=== PATIENT | female | born 1955 | race Caucasian/White ===

== ENCOUNTER 2019-02-13 06:50 | Day surgery (SDC) | payer BC ==
[2019-02-12 10:51] LABS: CHLORIDE,CL 105 mmol/L (98-107); SODIUM,NA 142 mmol/L (136-145)
[~2019-02-13 06:50] MED LIST: Lactated Ringers 1,000 ML IV SCH
[2019-02-13] MEDS ORDERED: Fluorescein 5 ML Vial ONE (07:31)
[2019-02-13] MEDS ORDERED: Dexamethasone 4 MG/ML 5 ML MDV ONE ×2 (07:42→08:49)
[2019-02-13] MEDS ORDERED: Propofol 200 MG/20 ML SDV ONE (07:42)
[2019-02-13] MEDS ORDERED: Lidocaine 2% 5 ML SDV ONE (07:42)
[2019-02-13] MEDS ORDERED: Ketorolac 30 MG/ML SDV ONE ×2 (07:42→10:13)
[2019-02-13] MEDS ORDERED: Ondansetron 4 MG/2 ML SDV ONE ×2 (07:42→08:49)
[2019-02-13] MEDS ORDERED: Midazolam 1 MG/ML 2 ML SDV ONE (07:43)
[2019-02-13] MEDS ORDERED: fentaNYL 250 MCG/5 ML SDV ONE (07:43)
--- NOTE | 2019-02-13 07:43 | PCM.PREANE ---
Preanesthetic Assessment - Anesthesia/Transfusion/Family Hx Anesthesia History: Prior Anesthesia Without Reaction Family History of Anesthesia Reaction: No Transfusion History: No Prior Transfusion(s) - Review of Systems General: No Symptoms Pulmonary: No Symptoms Cardiovascular: No Symptoms Gastrointestinal: No Symptoms Neurological: No Symptoms Other: Reports: None - Physical Assessment NPO Status Date: 02/12/19 Height: 5 ft 0.5 in Weight: 60.328 kg ASA Class: 2 Airway Class: Mallampati = 2 Dentition: Reports: Normal Dentition ROM/Head Extension: Full Lungs: Clear to Auscultation, Normal Respiratory Effort Cardiovascular: Regular Rate, Regular Rhythm - Lab Values: Laboratory Last Values WBC 5.60 K/uL (4.0-11.0) 02/12/19 10:04 RBC 4.65 M/uL (4.30-5.90) 02/12/19 10:04 Hgb 15.2 g/dL (12.0-16.0) 02/12/19 10:04 Hct 42.5 % (36.0-46.0) 02/12/19 10:04 MCV 91.4 fL (80.0-98.0) 02/12/19 10:04 MCH 32.7 pg (27.0-32.0) H 02/12/19 10:04 MCHC 35.8 g/dL (31.0-37.0) 02/12/19 10:04 RDW Std Deviation 45.6 fl (28.0-62.0) 02/12/19 10:04 RDW Coeff of Urszula 14 % (11.0-15.0) 02/12/19 10:04 Plt Count 266 K/uL (150-400) 02/12/19 10:04 MPV 9.80 fL (7.40-12.00) 02/12/19 10:04 Nucleated RBC % 0.0 /100WBC 02/12/19 10:04 Nucleated RBCs # 0 K/uL 02/12/19 10:04 Sodium 142 mmol/L (136-145) 02/12/19 10:04 Potassium 3.6 mmol/L (3.5-5.1) 02/12/19 10:04 Chloride 105 mmol/L (98-107) 02/12/19 10:04 Carbon Dioxide 29.4 mmol/L (21.0-32.0) 02/12/19 10:04 BUN 15 mg/dL (7.0-18.0) 02/12/19 10:04 Creatinine 0.8 mg/dL (0.6-1.0) 02/12/19 10:04 Est Cr Clr Drug Dosing 53.70 mL/min 02/12/19 10:04 Estimated GFR (MDRD) > 60.0 ml/min 02/12/19 10:04 Glucose 95 mg/dL (74-106) 02/12/19 10:04 Calcium 9.2 mg/dL (8.5-10.1) 02/12/19 10:04 HCG, Qual NEGATIVE (NEG) 02/12/19 10:04 Blood Type O POSITIVE 02/12/19 10:04 Antibody Screen NEGATIVE 02/12/19 10:04 - Allergies Allergies/Adverse Reactions: Allergies Allergy/AdvReac Type Severity Reaction Status Date / Time nickel Allergy Rash Verified 02/07/19 13:32 - Blood Blood Available: No - Anesthesia Plan Pre-Op Medication Ordered: None - Acknowledgements Anesthesia Type Planned: General Anesthesia Pt an Appropriate Candidate for the Planned Anesthesia: Yes Alternatives and Risks of Anesthesia Discussed w Pt/Guardian: Yes Pt/Guardian Understands and Agrees with Anesthesia Plan: Yes PreAnesthesia Questionnaire HEENT History: Reports: Other (See Below) Other HEENT History: wears glasses Cardiovascular History: Reports: None Respiratory History: Reports: None Gastrointestinal History: Reports: None Genitourinary History: Reports: None BILLET HEATER History: Reports: Musculoskeletal History: Reports: None Neurological History: Reports: Concussion Psychiatric History: Reports: None Endocrine/Metabolic History: Reports: None Hematologic History: Reports: None Immunologic History: Reports: None Oncologic (Cancer) History: Reports: None Dermatologic History: Reports: None - Past Surgical History Head Surgeries/Procedures: Reports: None HEENT Surgical History: Reports: Adenoidectomy, Oral Surgery, Tonsillectomy Cardiovascular Surgical History: Reports: None Respiratory Surgical History: Reports: None GI Surgical History: Reports: None Female Surgical History: Reports: None Endocrine Surgical History: Reports: None Neurological Surgical History: Reports: None Musculoskeletal Surgical History: Reports: None Oncologic Surgical History: Reports: None Dermatological Surgical History: Reports: None - SUBSTANCE USE Smoking Status *Q: Never Smoker Recreational Drug Use History: No - HOME MEDS Home Medications: Home Meds . [No Known Home Meds] 08/24/15 [History] - CURRENT (IN HOUSE) MEDS Current Meds: Current Medications Lactated Ringer's (Ringers, Lactated) 1,000 mls @ 125 mls/hr IV ASDIRECTED [facility] Discontinued Medications Fluorescein Sodium (Ak-Fluor) Confirm Administered Dose 5 ml .ROUTE .STK-MED ONE Stop: 02/13/19 07:32
[2019-02-13] MEDS ORDERED: Succinylcholine 200 MG/10 ML MDV ONE (08:46)
[2019-02-13] MEDS ORDERED: Neostigmine Methylsulfate 1 MG/ML 5 ML Syringe ONE (08:48)
[2019-02-13] MEDS ORDERED: Glycopyrrolate 0.2 MG/ML SDV ONE (08:48)
[2019-02-13] MEDS ORDERED: Mineral Oil/Petrolatum Ophth Oint 3.5 GM Tube ONE (09:07)
[2019-02-13] MEDS ORDERED: ceFAZolin 1 GM Vial ONE (09:10)
[2019-02-13] MEDS ORDERED: Furosemide 40 MG/4 ML VIAL ONE (09:54)
[2019-02-13] MEDS ORDERED: fentaNYL 100 MCG/2 ML SDV IVPUSH PRN (11:01)
[2019-02-13] MEDS ORDERED: Promethazine 25 MG/ML SDV IM PRN (11:15)
[2019-02-13] MEDS ORDERED: Morphine 10 MG/ML Syringe IVPUSH PRN (11:15)
[2019-02-13] MEDS ORDERED: Ketorolac 30 MG/ML SDV IVPUSH ONE (11:15)
[2019-02-13] MEDS ORDERED: Ondansetron 4 MG/2 ML SDV IVPUSH PRN (11:15)
--- NOTE | 2019-02-13 11:15 | PCM.OPNOTE ---
- General Post-Op/Procedure Note Date of Surgery/Procedure: 02/13/19 Operative Procedure(s): total vaginal hysterectomy, bilateral salpingoophorectomy, cystoscopy, anterior and posterior colporrhaphy, perineorrhaphy, vaginal vault suspension to uterosacral ligaments Findings: complete procidentia with enterocele, 4th degree cystocele, 2nd degree rectocele , gaping introitus Pre Op Diagnosis: complete uterovaginal prolapse. Post-Op Diagnosis: Same Anesthesia Technique: General ET Tube Primary Surgeon: Teresa Alexis Secondary Surgeon: Regine Marinelli Anesthesia Provider: Mihai Guevara Long Distance Billing Operator: Donna Sy Pathology: uterus, tubes, ovaries, vaginal mucosa Fluid Replacement, Intraop: 1,300 Output, Urine Amount: 750 EBL in mLs: 30 Complications: None known Condition: Good
--- NOTE | 2019-02-13 12:02 | PCM.POSTAN ---
POST ANESTHESIA ASSESSMENT - MENTAL STATUS Mental Status: Alert, Oriented - VITAL SIGNS Pulse Rate: 72 SaO2: 94 (RA) Resp Rate: 12 Blood Pressure: 124/75 - RESPIRATORY Respiratory Status: Respiratory Rate WNL, Airway Patent, O2 Saturation Stable - CARDIOVASCULAR CV Status: Pulse Rate WNL, Blood Pressure Stable - GASTROINTESTINAL GI Status: No Symptoms - POST OP HYDRATION Hydration Status: Adequate & Stable
[2019-02-13] MEDS: Acetaminophen/oxyCODONE 325-5 MG Tab PO PRN ×3 (13:57→20:59)
[2019-02-13] MEDS: Ketorolac 30 MG/ML SDV IVPUSH SCH ×3 (14:52→21:05)
--- NOTE | 2019-02-13 17:56 | PCM.SN ---
- Free Text/Narrative Note: POD 0 after TVH, BSO anterior and posterior colporrhaphy and vaginal vault suspension. Reviewed operative findings, pain well controlled, tolerating diet , will remove catheter and vaginal packing in am.
--- NOTE | 2019-02-13 18:08 | OR ---
SURGEON: Teresa Alexis M.D. DATE OF PROCEDURE: 02/13/2019 PREOPERATIVE DIAGNOSIS: Complete procidentia. POSTOPERATIVE DIAGNOSIS: Complete procidentia. PROCEDURE PERFORMED: Total vaginal hysterectomy, bilateral salpingo-oophorectomy, anterior and posterior colporrhaphy, perineorrhaphy, vaginal vault suspension to the uterosacral ligament, cystoscopy. PARTS PRODUCT ANALYST: Regine Marinelli M.D. ANESTHESIA: General endotracheal. FLUIDS: 1300 mL of crystalloid. ESTIMATED BLOOD LOSS: 30 mL. URINE OUTPUT: 500 mL. FINDINGS: Complete uterovaginal prolapse with the cervix and uterus external to the perineum, fourth-degree cystocele, fourth-degree enterocele, second-degree rectocele, gaping introitus. BRIEF HISTORY: This is a 63-year-old female. She presents with complaint of pelvic pressure and difficulty urinating. She was noted to have complete uterovaginal prolapse. She did receive a pessary, which she retained from the time it was placed until the day of surgery, and she did have relief of her symptoms with the pessary. However, she experienced severe pain with placement of the pessary and declines further use of the pessary. She desires definitive management with total vaginal hysterectomy, anterior and posterior colporrhaphy, vaginal vault suspension, and perineorrhaphy. Additionally, if it does not add significantly to the procedure, she would like to have both tubes and ovaries removed for risk reduction of ovarian cancer. She understands risks including risk of bleeding; infection; injury to bowel, bladder, blood vessels or any other organs; risk of thromboembolic event; risk of recurrence of approximately 30%; risk of dyspareunia. Additionally, she understands that I am a general air compressor engineer, and although I have performed this procedure as a primary surgeon for 17 years, I am not a urogynecologist, and I did offer her referral to a urogynecologist. However, she declines and prefers to have the procedure performed locally. DESCRIPTION OF PROCEDURE: With the patient in dorsal lithotomy position, under adequate general endotracheal anesthesia, the perineum and vagina were prepped with Betadine, draped in usual fashion for vaginal surgery. The pessary had been removed and Warner catheter had been placed. SCDs were in place. She received 2 g of Ancef IV. The upper abdomen was prepped with chlorhexidine. The perineum was prepped in the usual fashion for vaginal surgery. After appropriate time-out was held, bimanual examination revealed the cervix to be protruding well beyond the level of the introitus. The cervix was grasped with a Chana tenaculum and circumscribed using electrocautery. The posterior cul-de-sac was entered with sharp dissection and the Namita-Auvard speculum was placed posteriorly. The anterior cul-de-sac was then dissected using Metzenbaum scissors, and I actually placed a finger from the posterior cul-de-sac to the anterior cul-de-sac to identify the appropriate level of entry into the anterior cul-de-sac, which was performed sharply, and the right-angle retractor was placed anteriorly. The uterosacral ligaments were cross clamped, cut, and ligated using a Clarita ligature of 2-0 Polysorb. Two additional pedicles were taken on the right and the left using a Edenilson clamp and cutting and Clarita ligature of 2-0 Polysorb. The retained sutures of the utero-ovarian ligament were then utilized as the tubes and ovaries were easily brought into field. The infundibulopelvic ligament was then clamped and ligated. The tubes and ovaries were removed. The pedicle was ligated using a free tie followed by three point suture of 3-0 Polysorb and retained for inspection. On the left, there was some additional bleeding as the tip of the pedicle had retracted from the clamp. This was easily identified, clamped, and ligated using a Clarita ligature of 2-0 Polysorb. These pedicles were carefully inspected and were hemostatic on both sides and therefore were released. The anterior vaginal cuff was then grasped and hydrodissection was performed in the midline and a midline incision was made with Metzenbaum scissors. The muscularis layer was dissected and reapproximated in the midline using multiple interrupted mattress sutures of 2-0 Polysorb. This being completed, the retained uterosacral ligaments were utilized placing Kathrin clamps just medial on the right and the left to identify the upper portion of the broken uterosacral ligament. Three sutures of 2-0 Ticron were placed on the right and the left proceeding lateral to medial. A single tie was placed in each suture. After each of the sutures had been placed for a total of three on each side, these seemed to provide good support. The Warner catheter was then desufflated and the bowel packing that had been placed was removed. Cystoscopy was then performed using sterile water as a distending medium. IV fluorescein and Lasix had been given, and with pressure on each side, there was good flow from the ureter of bright green urine from the ipsilateral side. There was also no evidence of any trauma to the bladder mucosa. On the cystoscopy being completed, the Warner catheter was replaced. The retained ligatures that were placed in the upper uterosacral ligament, one arm was then placed through the muscularis layer at the vaginal apex of the repaired anterior cuff. Inspection revealed that there was a large enterocele. However, I felt that I could easily reduce this by going ahead and placing the posterior suture which was placed through the peritoneum and muscularis layer of the vagina at the posterior cuff. With this being completed, the cuff was suspended by tying each suture with the highest suture being placed in the midline of the vaginal cuff. The remainder of the vaginal cuff and anterior colporrhaphy after the vaginal mucosa had been trimmed was closed with a running lock suture of 2-0 Polysorb. A triangular incision was then made in the perineum. Hydrodissection was performed posteriorly. The muscularis layer was dissected from the overlying vaginal mucosa along the midline of the posterior vagina. This was reapproximated using multiple interrupted mattress sutures of 2-0 Polysorb. The vaginal mucosa was then closed with a running lock suture posteriorly of 2-0 Polysorb. This was then passed down to the perineum where the apices of the triangle were reapproximated in the midline providing excellent support of the perineum. A running deep suture was placed using the 3-0 Polysorb followed by subcuticular suture for the skin. This being completed, there was noted to be excellent support of the vaginal cuff. The vaginal cuff was completely closed. The introitus had excellent support. Warner catheter was in place and the vaginal packing was then placed using a water-based lubricant on the packing. Final sponge, needle, and instrument counts were reported as correct. There were no complications. The patient was transferred to recovery in good condition. SHELBY / MAYKEL /[id number]
[2019-02-14] MEDS: Acetaminophen/oxyCODONE 325-5 MG Tab PO PRN ×4 (01:54→16:01)
[2019-02-14] MEDS: Ketorolac 30 MG/ML SDV IVPUSH SCH ×3 (03:38→15:20)
--- NOTE | 2019-02-14 08:53 | PCM.SURGPN ---
- General Info Date of Service: 02/14/19 Date of Surgery/Procedure: 02/13/19 POD#: 1 Post-Op Diagnosis: complete uterovaginal prolapse. Functional Status: Reports: Pain Controlled, Tolerating Diet, Ambulating, Urinating - Review of Systems General: Reports: No Symptoms HEENT: Reports: No Symptoms Pulmonary: Reports: No Symptoms Cardiovascular: Reports: No Symptoms Gastrointestinal: Reports: No Symptoms Genitourinary: Reports: No Symptoms Musculoskeletal: Reports: No Symptoms Skin: Reports: No Symptoms Neurological: Reports: No Symptoms Psychiatric: Reports: No Symptoms - Patient Data Vitals - Most Recent: Last Vital Signs Temp 36.6 C 02/14/19 08:10 Pulse 70 02/14/19 08:10 Resp 19 02/14/19 08:10 BP 141/80 H 02/14/19 08:10 Pulse Ox 93 L 02/14/19 08:10 Weight - Most Recent: 60.328 kg I&O - Last 24 Hours: Intake & Output 02/13/19 02/14/19 02/14/19 22:59 06:59 14:59 Output Total 850 Balance -850 Lab Results Last 24 Hrs: Laboratory Results - last 24 hr 02/14/19 02/14/19 Range/Units 05:50 05:50 WBC 13.27 H (4.0-11.0) K/uL RBC 4.11 L (4.30-5.90) M/uL Hgb 13.2 (12.0-16.0) g/dL Hct 37.6 (36.0-46.0) % MCV 91.5 (80.0-98.0) fL MCH 32.1 H (27.0-32.0) pg MCHC 35.1 (31.0-37.0) g/dL RDW Std Deviation 44.9 (28.0-62.0) fl RDW Coeff of Urszula 14 (11.0-15.0) % Plt Count 264 (150-400) K/uL MPV 10.20 (7.40-12.00) fL Neut % (Auto) 75.9 (48.0-80.0) % Lymph % (Auto) 11.3 L (16.0-40.0) % [place] % (Auto) 12.4 (0.0-15.0) % Eos % (Auto) 0.2 (0.0-7.0) % Baso % (Auto) 0.2 (0.0-1.5) % Neut # (Auto) 10.1 H (1.4-5.7) K/uL Lymph # (Auto) 1.5 (0.6-2.4) K/uL [place] # (Auto) 1.6 H (0.0-0.8) K/uL Eos # (Auto) 0.0 (0.0-0.7) K/uL Baso # (Auto) 0.0 (0.0-0.1) K/uL Nucleated RBC % 0.0 /100WBC Nucleated RBCs # 0 K/uL Sodium 140 (136-145) mmol/L Potassium 3.7 (3.5-5.1) mmol/L Chloride 104 (98-107) mmol/L Carbon Dioxide 30.3 (21.0-32.0) mmol/L BUN 15 (7.0-18.0) mg/dL Creatinine 1.0 (0.6-1.0) mg/dL Est Cr Clr Drug Dosing 42.96 mL/min Estimated GFR (MDRD) 56.2 ml/min Glucose 96 (74-106) mg/dL Calcium 8.9 (8.5-10.1) mg/dL Med Orders - Current: Current Medications Lactated Ringer's (Ringers, Lactated) 1,000 mls @ 125 mls/hr IV ASDIRECTED [facility] Last Admin: 02/13/19 07:30 Dose: 125 mls/hr Ketorolac Tromethamine (Toradol) 15 mg IVPUSH Q6H [facility] Stop: 02/18/19 15:01 Last Admin: 02/14/19 08:16 Dose: Not Given Morphine Sulfate (Morphine) 4 mg IVPUSH Q2H PRN PRN Reason: Pain (severe 7-10) Last Admin: 02/13/19 12:47 Dose: 4 mg Ondansetron HCl (Zofran) 4 mg IVPUSH Q6H PRN PRN Reason: Nausea/Vomiting Oxycodone/Acetaminophen (Percocet 325-5 Mg) 1 tab PO Q4H PRN PRN Reason: Pain (moderate 4-6) Last Admin: 02/14/19 06:08 Dose: 1 tab Oxycodone/Acetaminophen (Percocet 325-5 Mg) 2 tab PO Q4H PRN PRN Reason: Pain (moderate 4-6) Promethazine HCl (Phenergan) 25 mg IM Q6H PRN PRN Reason: Nausea/Vomiting Discontinued Medications Cefazolin Sodium (Ancef) Confirm Administered Dose 2 gm .ROUTE .STK-MED ONE Stop: 02/13/19 09:11 Dexamethasone (Dexamethasone) Confirm Administered Dose 20 mg .ROUTE .STK-MED ONE Stop: 02/13/19 07:43 Dexamethasone (Dexamethasone) Confirm Administered Dose 20 mg .ROUTE .STK-MED ONE Stop: 02/13/19 08:50 Fentanyl (Sublimaze) Confirm Administered Dose 250 mcg .ROUTE .STK-MED ONE Stop: 02/13/19 07:44 Fentanyl (Sublimaze) 50 mcg IVPUSH Q5M PRN PRN Reason: Pain (severe 7-10) Stop: 02/13/19 13:00 Fluorescein Sodium (Ak-Fluor) Confirm Administered Dose 5 ml .ROUTE .STK-MED ONE Stop: 02/13/19 07:32 Furosemide (Lasix) Confirm Administered Dose 40 mg .ROUTE .STK-MED ONE Stop: 02/13/19 09:55 Glycopyrrolate (Robinul) Confirm Administered Dose 0.4 mg .ROUTE .STK-MED ONE Stop: 02/13/19 08:49 Lidocaine HCl (Xylocaine-Mpf 1%) Confirm Administered Dose 5 mls @ as directed .ROUTE .STK-MED ONE Stop: 02/13/19 08:47 Acetaminophen (Ofirmev) Confirm Administered Dose 100 mls @ as directed IV .STK- MED ONE Stop: 02/13/19 10:06 Ketorolac Tromethamine (Toradol) Confirm Administered Dose 30 mg .ROUTE .STK- MED ONE Stop: 02/13/19 07:43 Ketorolac Tromethamine (Toradol) Confirm Administered Dose 30 mg .ROUTE .STK- MED ONE Stop: 02/13/19 10:14 Ketorolac Tromethamine (Toradol) 15 mg IVPUSH ONETIME ONE Stop: 02/13/19 11:16 Last Admin: 02/13/19 14:01 Dose: Not Given Lidocaine (Xylocaine-Mpf 2%) Confirm Administered Dose 5 ml .ROUTE .STK-MED ONE Stop: 02/13/19 07:43 Midazolam HCl (Versed 1 Mg/Ml) Confirm Administered Dose 4 mg .ROUTE .STK-MED ONE Stop: 02/13/19 07:44 Mineral Oil/White Petrolatum (Lacri-Lube S.O.P Oint) Confirm Administered Dose 3.5 gm .ROUTE .STK-MED ONE Stop: 02/13/19 09:08 Neostigmine Methylsulfate (Neostigmine) Confirm Administered Dose 5 mg .ROUTE .STK-MED ONE Stop: 02/13/19 08:49 Ondansetron HCl (Zofran) Confirm Administered Dose 8 mg .ROUTE .STK-MED ONE Stop: 02/13/19 07:43 Ondansetron HCl (Zofran) Confirm Administered Dose 4 mg .ROUTE .STK-MED ONE Stop: 02/13/19 08:50 Propofol (Diprivan 20 Ml) Confirm Administered Dose 200 mg .ROUTE .STK-MED ONE Stop: 02/13/19 07:43 Succinylcholine Chloride (Quelicin) Confirm Administered Dose 200 mg .ROUTE .STK -MED ONE Stop: 02/13/19 08:47 - Exam Wound/Incisions: Other (vaginal packing removed, minimal brown discharge. ) General: Alert, Oriented Neck: Supple Lungs: Normal Respiratory Effort Cardiovascular: Regular Rate, Regular Rhythm GI/Abdominal Exam: Soft, Non-Tender Extremities: Normal Inspection, Normal Range of Motion, Non-Tender, No Pedal Edema, Normal Capillary Refill Neurological: No New Focal Deficit Psy/Mental Status: Alert, Normal Affect, Normal Mood - Problem List & Annotations (1) Complete uterovaginal prolapse SNOMED Code(s): 03701933 Code(s): N81.3 - COMPLETE UTEROVAGINAL PROLAPSE Status: Acute Current Visit: Yes - Problem List Review Problem List Initiated/Reviewed/Updated: Yes - My Orders Last 24 Hours: Active Orders 24 hr Category Date Time Status Patient Status [ADT] Routine ADT 02/13/19 11:16 Active Antiembolic Devices [RC] PER UNIT ROUTINE Care 02/13/19 11:16 Active Notify Provider Intake and Out [RC] ASDIRECTED Care 02/13/19 11:16 Active Notify Provider Vital Signs [RC] ASDIRECTED Care 02/13/19 11:16 Active Oxygen Therapy [RC] ASDIRECTED Care 02/13/19 11:16 Active RT Incentive Spirometry [RC] Q2HWA Care 02/13/19 11:16 Active Up With Assistance [RC] PER UNIT ROUTINE Care 02/13/19 11:16 Active Up ad Meche [RC] PER UNIT ROUTINE Care 02/13/19 11:16 Active Urinary Catheter Removal [RC] Per Unit Routine Care 02/13/19 11:16 Active Vital Signs [RC] PER UNIT ROUTINE Care 02/13/19 11:16 Active Regular Diet [DIET] Diet 02/13/19 Dinner Active Acetaminophen/oxyCODONE [Percocet 325-5 MG] Med 02/13/19 11:15 Active 1 tab PO Q4H PRN Acetaminophen/oxyCODONE [Percocet 325-5 MG] Med 02/13/19 11:15 Active 2 tab PO Q4H PRN Ketorolac [Toradol] Med 02/13/19 15:00 Active 15 mg IVPUSH Q6H Morphine Med 02/13/19 11:15 Active 4 mg IVPUSH Q2H PRN Ondansetron [Zofran] Med 02/13/19 11:15 Active 4 mg IVPUSH Q6H PRN Promethazine [Phenergan] Med 02/13/19 11:15 Active 25 mg IM Q6H PRN Peripheral IV Discontinue [OM.PC] Routine Oth 02/13/19 11:16 Ordered Sequential Compression Device [OM.PC] Per Unit Routine Oth 02/13/19 11:16 Ordered Resuscitation Status Routine Resus Stat 02/13/19 11:15 Ordered Medication Orders Lactated Ringer's (Ringers, Lactated) 1,000 mls @ 125 mls/hr IV ASDIRECTED [facility] Last Admin: 02/13/19 07:30 Dose: 125 mls/hr Ketorolac Tromethamine (Toradol) 15 mg IVPUSH Q6H [facility] Stop: 02/18/19 15:01 Last Admin: 02/14/19 08:16 Dose: Admin: 02/14/19 03:38 Dose: Admin: 02/13/19 21:05 Dose: Admin: 02/13/19 14:52 Dose: 15 mg Morphine Sulfate (Morphine) 4 mg IVPUSH Q2H PRN PRN Reason: Pain (severe 7-10) Last Admin: 02/13/19 12:47 Dose: 4 mg Ondansetron HCl (Zofran) 4 mg IVPUSH Q6H PRN PRN Reason: Nausea/Vomiting Oxycodone/Acetaminophen (Percocet 325-5 Mg) 1 tab PO Q4H PRN PRN Reason: Pain (moderate 4-6) Last Admin: 02/14/19 06:08 Dose: 1 tab Admin: 02/14/19 01:54 Dose: 1 tab Admin: 02/13/19 20:59 Dose: 1 tab Admin: 02/13/19 16:24 Dose: 1 tab Admin: 02/13/19 13:57 Dose: 1 tab Oxycodone/Acetaminophen (Percocet 325-5 Mg) 2 tab PO Q4H PRN PRN Reason: Pain (moderate 4-6) Promethazine HCl (Phenergan) 25 mg IM Q6H PRN PRN Reason: Nausea/Vomiting - Assessment Assessment (Free Text/Narrative):: POD#1 after total vaginal hysterectomy bilateral salpingoophorectomy, anterior and posterior colporrhaphy, vaginal vault suspension to uterosacral ligament. Minimal pain except for lower sacral area. Tolerating diet, has been ambulating , must void prior to discharge. Good urine output - Plan Plan (Free Text/Narrative):: Dismiss to home after voiding today. Discharge instructions reviewed.
[2019-02-14 16:41] VITALS: BP 136/88
== END 2019-02-14 17:40 | disposition home or self-care (01) ==
LOC: MW.SDS 06:50 → MW.OB 10:49 → MW.SDS 02-14 17:40
PROVIDERS: ATTEND Obstetrics & Gynecology
DX: N81.3 Complete uterovaginal prolapse (principal); N81.6 Rectocele; N72 Inflammatory disease of cervix uteri; N83.332 Acquired atrophy of left ovary and fallopian tube; N83.331 Acquired atrophy of right ovary and fallopian tube; Z91.09 Other allergy status, other than to drugs and biological substances
CPT/HCPCS: 36415; 57260; 57283; 58262; 80048; 84703; 85025; 85027; 86850; 86900; 86901; 88307; A9270; J0131; J0330; J0690; J1100; J1885; J1940; J2001; J2250; J2270; J2405; J2704; J3010; J3490; J7120